=== PATIENT | male | born 1955 | race Caucasian/White ===

== ENCOUNTER 2017-10-04 10:58 | Emergency (ER) | payer BC ==
[~2017-10-04] VITALS: Ht 180.3 cm; Wt 126.0 kg
[~2017-10-04 10:58] MED LIST: B COTAB3 PO; CQ 10 PO; ROSU5 PO; TAB-TAB PO
[2017-10-04 10:59] VITALS: BP 195/92; PULSE 64; RESP 16; TEMP 98.4; O2SAT 96
[2017-10-04] MEDS ORDERED: LISI10TA3 PO (11:18)
[2017-10-04] MEDS ORDERED: LIDOCAINE 1%/EPINEPHrine 1:100,000 SOLN 20 ML VIAL INFIL ONE (11:45)
--- NOTE | 2017-10-04 12:32 | PD ---
HPI Chief Complaint: Laceration/Skin Injury Time Seen by Provider: 11:14 Travel History International Travel<30 days: No Contact w/Intl Traveler<30days: No Traveled to known affect area: No History of Present Illness HPI 62-year-old male here with a laceration to his scalp after contusing the area on dacosta of a truck while he worked on the engine. There was no loss of consciousness. Patient is not anticoagulated. Patient does not have a headache or neck pain. Symptom severity moderate. No alleviating factors. PFSH Past Medical History Cardiovascular Problems: Yes (HTN) High Cholesterol: Yes Diminished Hearing: Yes (hearing aids ) Hypertension: Yes Musculoskeletal: Yes ("PLANTAR FASCIATA") Tetanus Vaccination: > 5 Years Past Surgical History Oral Surgery: Yes (1960-LIP SURGERY) Tonsillectomy: Yes (1959) Other Surgery: Yes (1994-RHINOPLASTY) Social History Alcohol Use: Yes (occassional ) Tobacco Use: No Substance Use: No Allergies-Medications (Allergen,Severity, Reaction): Coded Allergies: No Known Allergies (Verified Allergy, Mild, 10/04/17) Reported Meds & Prescriptions Reported Meds & Active Scripts Active Reported Lisinopril 10 Mg Tab 10 Mg PO DAILY Review of Systems Except as stated in HPI: all other systems reviewed are Neg Physical Exam Narrative GENERAL: Alert well-appearing male in no acute distress. SKIN: Warm and dry. 4 cm superficial laceration to the scalp. Minimal active bleeding. HEAD: Normocephalic. EYES: No scleral icterus. No injection or drainage. NECK: Supple, trachea midline. No JVD or lymphadenopathy. No midline cervical spine tenderness. CARDIOVASCULAR: Regular rate and rhythm without murmurs, gallops, or rubs. RESPIRATORY: Breath sounds equal bilaterally. No accessory muscle use. GASTROINTESTINAL: Abdomen soft, non-tender, nondistended. MUSCULOSKELETAL: No cyanosis, or edema. BACK: Nontender without obvious deformity. No CVA tenderness. Data Data Last Documented VS Vital Signs Date Time Temp Pulse Resp B/P (MAP) Pulse Ox O2 Delivery O2 Flow Rate FiO2 10/04/17 10:59 98.4 64 16 195/92 (126) 96 Orders Orders Lidocai-Epi 1%-1:100,000 Inj (Xylocaine- (10/04/17 11:45) Ed Discharge Order (11/29/17 12:32) Tetanus/Diphtheria Tox Adult (Tetanus/Di (10/04/17 12:45) [facility] Medical Decision Making Medical Screen Exam Complete: Yes Emergency Medical Condition: Yes Differential Diagnosis Laceration, scalp contusion, skull fracture, ICH Narrative Course 62-year-old male here with a laceration to his scalp after contusing the area on dacosta of a truck while he worked on the engine. There was no loss of consciousness. Patient is not anticoagulated. Patient does not have a headache. Patient has a 4 cm superficial laceration to the scalp. Laceration repair was performed. Patient tolerated procedure well. Return precautions discussed. Procedures Procedure Narrative LACERATION LOCATION: Scalp LENGTH: 4 cm NUMBER OF STITCHES/ZAKI: 4 REPAIR: The area of the laceration was prepped with Betadine and sterilely draped. The laceration was infiltrated with 1% lidocaine with epi. The wound was copiously irrigated and explored without evidence of foreign body, tendon injury or neurovascular injury. The wound was closed using 5-0 Ethilon. This was a SINGLE layer repair. A sterile dressing was applied. The patient was advised to keep the dressing clean and dry. Patient tolerated the procedure well. Diagnosis Primary Impression: Scalp laceration Qualified Codes: S01.01XA - Laceration without foreign body of scalp, initial encounter Referrals: Primary Care Physician Additional Instructions: Sutures need to be removed in 7-10 days. Do not submerge the wound in water. Showering and washing the area with soap and water daily is okay. Disposition: 01 DISCHARGE HOME Condition: Stable Beatriz Pereyra Oct 04, 2017 12:32
[2017-10-04] MEDS ORDERED: TETANUS/DIPHTHERIA TOXOID ADULT 0.5 ML VIAL IM ONE (12:45)
== END 2017-10-04 13:00 | disposition home or self-care (01) ==
LOC: PHEFT 10:58
DX: S01.01XA Laceration without foreign body of scalp, initial encounter (principal); W22.8XXA Striking against or struck by other objects, initial encounter; Y93.89 Activity, other specified; Z23 Encounter for immunization
CPT/HCPCS: 12002; 90471; 90714